=== PATIENT | female | born 1985 | race Caucasian/White ===

== ENCOUNTER 2024-05-02 09:10 | Emergency (ER) | payer OTHER, SELFPAY ==
[2024-05-02 09:17] VITALS: BP 149/93
--- NOTE | 2024-05-02 09:33 | ED.GENMED ---
History of Present Illness
General
Chief Complaint: Fainting/Passed Out
Source: patient and spouse
Time Seen by Provider: 05/02/24 09:22
History of Present Illness
History of Present Illness:
This patient is a 38-year-old female who suffers from constipation. 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 She noticed that she drank less
than usual yesterday but otherwise felt her normal self. Her last bowel movement was 2 days ago without black stool or blood. She woke at approximately 3:30 AM with complaints of abdominal distention, diffuse discomfort, associate with nausea.
She then had multiple episodes of nonbloody vomiting. She feels very tired this morning because she has been up and had very little sleep. She had an episode in the bathroom where she transiently became faints, no injury, no associated chest pain,
back pain, neck pain, dyspnea, or other complaints. Pain is constant, diffuse, without radiation, exacerbating, relieving factors.
Past History
Past History
ED Past Medical History: GERD, HTN, Psychiatric and Other (PTSD, migraines, genital herpes, anxiety/depression)
ED Past Surgical History: and Other ([place] tooth extraction, AB �2)
Social History
Tobacco: Former smoker
Alcohol: None
Drug: Former user
Personal:
Living: with family
Phy Exam
Physical Exam
Physical Exam:
GENERAL: Awake but tired appearing, in no apparent distress
EYE: pupils equal and reactive
NECK: Supple, no significant adenopathy.
ENT: o/p clr, mm slightly dry
CARDIAC: Regular rate and rhythm .
LUNGS: Clear breath sounds bilaterally, no acute respiratory distress, no wheezes/rales/rhonchi
ABDOMEN: Soft, diffuse nonspecific tenderness, no r/g, no cvat
NEUROLOGICAL: Alert and oriented, no focal neuro deficits
SKIN: Warm and dry, skin intact.
MUSCULOSKELETAL: No edema, well perfused.
PSYCH: Normal and appropriate interaction.
Course
Orders/Labs/Results
Orders:
Orders
05/02/24 09:17
ECG [Electrocardiogram (*1)] Urgent
Reason for Study: Syncope
EKG- Treatment ONCE
05/02/24 09:32
CT Abd/Pel (IV only)-DH only Urgent
Comment:
Reason For Exam: abd distention and diffuse pain with n/v
Cardiac Monitoring- Treatment ONCE
0.9% Sodium Chloride 1000 ml [Nss] 1,000 ml IV BOLUS
Ketorolac [Toradol] 15 mg IV NOW STA
05/02/24 09:39
Complete Blood Count/No Diff Urgent
Comprehensive Metabolic Panel Urgent
HCG, Serum Qualitative Screen Urgent
Comment: add on
Lipase Urgent
05/02/24 10:22
Add On- LAB Urgent
Comments:: serum hcg qualitative
Tests Added?: serum hcg qualitative
05/02/24 11:59
Urinalysis Reflex To Culture Urgent
Date Specimen was Collected: 05/02/24
Time Specimen was Collected: 11:57
Abnormal Lab Results
05/02/24
09:39
MPV 12.1 H fL
(7.4-10.4)
Glucose 122 H mg/dl
(70-99)
ALT 46 H U/L
(0-35)
05/02/24 09:39
05/02/24 09:39
Vital Signs
Initial and Last Documented VS:
Initial Vital Signs
Temp Pulse Resp BP Pulse Ox
98.3 F 77 18 149/93 97
05/02/24 09:17 05/02/24 09:17 05/02/24 09:17 05/02/24 09:17 05/02/24 09:17
Last Documented Vital Signs
Temp Pulse Resp BP Pulse Ox
98.3 F 58 19 138/85 98
05/02/24 09:17 05/02/24 12:03 05/02/24 12:03 05/02/24 12:03 05/02/24 12:03
*Critical Care Note
Total Time (30-74mins, 75-104mins- exclusive of procedures): Not Applicable
Update Note
Update Note:
Patient presents to the Emergency Department with __abdominal pain nausea vomiting
Number and Complexity of Problems Addressed at the Encounter
� Chronic conditions affecting care:
� Acute Exacerbation and/or Progression of Chronic Illness:
� Differential Diagnosis includes: But not limited to bowel obstruction, ileus, perforation, diverticulitis, etc. etc.
Amount and/or Complexity of Data to be Reviewed and Analyzed
� I performed an independent evaluation of and my interpretation is:
EKG:read bt me, nsr, nl rate, sl T wave flattening (nonspec)
CT:No acute abnormality in the abdomen or pelvis.
Hepatic steatosis and hepatomegaly.
Mild splenomegaly.
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
Colonic diverticulosis without acute diverticulitis.
Xrays:
Laboratory Studies:generally unremarkable
Other:
� Review of other/old records reveals: endoscopy December 2022 wnl
� Clinical information was obtained by an independent historian: who is bedside
� Prescriptions/Medications Considered but not given:
� Further testing considered but not performed:
Risk of Complications and/or Morbidity or Mortality of Patient Management
� Social determinants of health affecting care:
� Discussion with other providers (PCP, Hospitalists, Consultants, etc):
� Escalation of care including admission/observation vs risk of discharge considered:1214pm reassessment, pt feels much better, walked to br to urinate, no diarrhea, no dizziness/cp/sob. has intermittent lower abd cramping. Do
not suspect acute surgical/emergent cause of sxs, reassuring repeat exam (abd soft), labs, etc. Pt already aware of CT results/fatty liver an dis being worked up. I will give her copy of CT reprot.
ED Attending Note
-
Portions of this chart may have been created with voice recognition software.� Occasional wrong word or��sound alike� substitutions may have occurred due to the inherent limitations of voice recognition software.
Discharge Plan
Departure
Patient Disposition: Home (Routine Discharge)
Date of Disposition: 05/02/24
Time of Disposition: 12:15
Patient with high blood pressure during this ER visit?: Yes
Condition: Good
Discharge Problem:
Vomiting, Abdominal pain, Dizziness
Instructions: Dizziness, Adult ED, Abdominal Pain, BLOOD PRESSURE, Acute Nausea and Vomiting
Prescriptions:
No Action
valacyclovir 500 mg Tablet
500 mg PO DAILY
omeprazole 40 mg Capsule,Delayed Release(Dr/Ec)
40 mg PO DAILY
fluticasone propionate [Flovent] 44 mcg/actuation Hfa Aerosol Inhaler
2 puff INHALATION BID
albuterol sulfate 90 mcg/actuation Hfa Aerosol Inhaler
2 puff INHALATION 6XD PRN (Reason: sob)
Patient Comments:
pt has not needed in over a month ago
escitalopram oxalate 20 mg Tablet
20 mg PO DAILY
aripiprazole 5 mg Tablet
5 mg PO DAILY
metoprolol succinate 50 mg Capsule,Sprinkle,Er 24hr
50 mg PO DAILY
amoxicillin-pot clavulanate 875-125 mg tablet
1 tab PO BID Qty: 20 0RF
Referrals:
Rosana Gambino MD [Family Provider] - Follow up in 2-3 days
Activity Restrictions/Additional Instructions:
IF YOU DEVELOP CHEST PAIN, TROUBLE BREATHING, PALPITATIONS, DIZZINESS, RECURRENT/NEW/WORSENING ABDOMINAL PAIN, FEVER, OR OTHER WORRISOME SIGNS, GO TO THE ER IMMEDIATELY! SEE ATTACHED CT REPORT FOR FOLLOW UP.
Interventions
Interventions:
*Risk Screen - Suicide Last Done: 05/02/24 09:44
*General Assessment Last Done: 05/02/24 09:44
*Neglect/Abuse Screening Last Done: 05/02/24 09:44
ED- Fall Risk Assessment Last Done: 05/02/24 09:33
*ED COVID-19 Vaccine History Last Done: 05/02/24 09:44
ED- Cardiac Assessment Last Done: 05/02/24 09:33
ED- Neurological Assessment Last Done: 05/02/24 09:33
Discharge Date and Time
Print Language: EGYPTIAN
[2024-05-02 09:37] VITALS: BP 132/83
[2024-05-02] MEDS: NSS 1000 IV (09:38)
[2024-05-02] MEDS: TORADOL 15 MG IV (09:41)
[2024-05-02 09:56] LABS: Hemoglobin 13.2 g/dL (12.0-16.0); Mean Corpuscular Hgb 27.7 pg (27.0-31.0); Mean Platelet Volume 12.1 fL (7.4-10.4); Platelet Count 156 10^3/uL (130-400); Red Blood Cell Count 4.76 10^6/uL (4.20-5.40); Red Cell Dist. Width 13.3 % (11.5-14.5); White Blood Cell Count 7.1 10^3/uL (4.8-10.8)
[2024-05-02 10:00] VITALS: BP 127/78
[2024-05-02 10:00] LABS: ALT (SGPT) 46 U/L (0-35); AST (SGOT) 29 U/L (14-36); Albumin 4.3 g/dl (3.5-5.0); Alkaline Phosphatase 69 U/L (38-126); Blood Urea Nitrogen 10 mg/dl (7-17); Calcium 9.2 mg/dl (8.4-10.2); Carbon Dioxide 29 mmol/L (22-30); Chloride 104 mmol/L (98-107); Estimated Creatinine Clearance > 125 ml/min; Glucose 122 mg/dl (70-99); Lipase 97 U/L (23-300); Potassium 4.8 mmol/L (3.5-5.1); Sodium 139 mmol/L (135-145); Total Bilirubin 0.7 mg/dl (0.2-1.3); Total Protein 6.9 g/dl (6.3-8.2); eGFR > 60.00
[2024-05-02 10:55] LABS: HCG, Serum Qualitative Screen Negative
[2024-05-02 11:10] VITALS: BP 123/64
[2024-05-02 12:03] VITALS: BP 138/85
[2024-05-02 12:28] LABS: Urine Albumin Negative (Neg - Trace); Urine Bilirubin Negative (Negative); Urine Character Clear (Clear); Urine Color Yellow; Urine Glucose Negative (Negative); Urine Ketone Negative (Negative); Urine Leukocyte Trace (Negative); Urine Nitrite Negative (Negative); Urine Occult Blood Negative (Negative); Urine Specific Gravity 1.005 (<1.030); Urine Urobilinogen Negative (Neg - 1+)
[2024-05-02 13:10] LABS: Urine Bacteria Few (Negative); Urine Red Blood Cell 0-2 /HPF (0-2); Urine White Cell 0-2 /HPF (0-5)
== END 2024-05-02 12:44 | disposition home or self-care (01) ==
LOC: EMR 09:10
PROVIDERS: EMERGENCY PHYSICIAN Emergency Medicine; FAMILY PHYSICIAN Family Medicine
DX: R55 Syncope and collapse (principal); R42 Dizziness and giddiness; R10.9 Unspecified abdominal pain; R11.2 Nausea with vomiting, unspecified; R14.0 Abdominal distension (gaseous); K59.00 Constipation, unspecified; K76.0 Fatty (change of) liver, not elsewhere classified; R16.2 Hepatomegaly with splenomegaly, not elsewhere classified; K21.9 Gastro-esophageal reflux disease without esophagitis; I10 Essential (primary) hypertension; K57.30 Diverticulosis of large intestine without perforation or abscess without bleeding; F43.10 Post-traumatic stress disorder, unspecified; G43.909 Migraine, unspecified, not intractable, without status migrainosus; Z87.891 Personal history of nicotine dependence; Z91.030 Bee allergy status; Z88.5 Allergy status to narcotic agent; Z88.8 Allergy status to other drugs, medicaments and biological substances; Z91.018 Allergy to other foods; Z91.048 Other nonmedicinal substance allergy status
CPT/HCPCS: 99285; 96361; 96374; 74177; 80053; 81003; 81015; 83690; 84703; 85027; 93005; Q9967

== ENCOUNTER 2024-05-05 23:20 | Emergency (ER) | payer OTHER, SELFPAY ==
[2024-05-05 23:23] VITALS: BP 124/76
[2024-05-05 23:40] VITALS: BP 133/73
[2024-05-05 23:41] VITALS: BMI 37.9
[2024-05-05 23:48] LABS: Urine Albumin Trace (Neg - Trace); Urine Bilirubin Negative (Negative); Urine Character Slightly Cloudy (Clear); Urine Color Yellow; Urine Glucose Negative (Negative); Urine Ketone Negative (Negative); Urine Leukocyte 2+ (Negative); Urine Nitrite Negative (Negative); Urine Occult Blood 2+ (Negative); Urine Urobilinogen Negative (Neg - 1+)
[2024-05-05 23:49] LABS: HCG, Urine Qualitative Screen Negative
[2024-05-06] VITALS: BP 134/83
[2024-05-06 01:00] VITALS: BP 123/65
--- NOTE | 2024-05-06 01:01 | ED.GENMED ---
History of Present Illness
General
Chief Complaint: Urinary Symptoms
Source: patient
Exam Limitations: none
Time Seen by Provider: 05/06/24 00:23
Nursing documentation reviewed up to this point in time: agreed with
History of Present Illness
History of Present Illness:
38-year-old female with history as document presents to the emergency room for evaluation of urinary symptoms. Patient reports that she was having abdominal pain earlier in the week that she was seen in the emergency room had workup which was
essentially negative, thought her symptoms were related to constipation. Since then patient has developed increased urinary frequency and dysuria she is having continued lower abdominal discomfort; she believes she has a UTI so she came back to the
emergency room to be assessed. No fevers or chills. She does report occasional flank pains worse on the left. Denies any nausea or vomiting. Still some constipation. No vaginal bleeding or discharge. She says that her last menstrual period was
about 2 weeks ago. She denies any other complaints.
Past History
Past History
ED Past Medical History: GERD, HTN, Psychiatric and Other (PTSD, migraines, genital herpes, anxiety/depression)
ED Past Surgical History: and Other ([place] tooth extraction, AB �2)
Social History
Tobacco: Former smoker
Alcohol: None
Drug: Former user
Personal:
Living: with family
Review of Systems
Review of Systems
All Other Systems: ROS reviewed and negative except as documented in HPI and ROS
Constitutional: Denies fever
Respiratory: Denies trouble breathing
Cardiac: Denies chest pain
ABD/GI: Reports abdominal pain and constipated; Denies nausea or vomiting
: Reports dysuria, frequency and flank pain; Denies incontinence or bleeding
Musculoskeletal: Denies neck pain or back pain
Neurological: Denies headache
Phy Exam
Physical Exam
Physical Exam:
General: Awake, alert, oriented x3; no acute distress
Head: Normocephalic, atraumatic
Eyes: Conjunctiva normal, sclera anicteric
Throat: Airway intact, handling secretions
Neck: Trachea midline, supple without meningismus
Lungs: Clear to auscultation bilaterally, no wheezing, rales, rhonchi
Heart: Regular rate and rhythm, no murmurs, gallops, or rubs
Abd: Soft, non distended, tender to palpation in suprapubic region with no peritoneal signs or abdominal masses
Back: No CVA tenderness
Neuro: No gross deficits
Extremities: Warm and well-perfused
Scores
Heart Failure Risk
Heart Failure Risk Score: Not Applicable
Heart Score for Chest Pain Patients
STEMI patient?: Not applicable
Withdrawal Assessment of Alcohol
Withdrawal Assessment Completed?: Not applicable
Course
Orders/Labs/Results
Orders:
Orders
05/05/24 23:26
Test Result ONCE
05/05/24 23:37
HCG, Urine Qualitative Screen Urgent
Date Specimen was Collected: 05/05/24
Time Specimen was Collected: 23:26
Urinalysis Reflex To Culture Urgent
Date Specimen was Collected: 05/05/24
Time Specimen was Collected: 23:26
Urine Microscopic Reflex Cult Urgent
Urine Culture Urgent
ELIJAH Source: U
Specimen Description:
Date Specimen was Collected: 05/05/24
Time Specimen was Collected: 23:26
Abnormal Lab Results
05/05/24
23:37
Ur Occult Blood Reflex 2+ A
(Negative)
Leukocyte Esterase Rfl 2+ A
(Negative)
Urine WBC (Reflex) >100 A /HPF
(0-5)
Urine Bacteria (Reflex) Many A
(Negative)
Vital Signs
Initial and Last Documented VS:
Initial Vital Signs
Temp Pulse Resp BP Pulse Ox
37.1 C 80 18 124/76 98
05/05/24 23:23 05/05/24 23:23 05/05/24 23:23 05/05/24 23:23 05/05/24 23:23
Last Documented Vital Signs
Temp Pulse Resp BP Pulse Ox
37.1 C 80 18 134/83 93
05/05/24 23:23 05/05/24 23:23 05/05/24 23:23 05/06/24 00:00 05/06/24 00:15
MDM/Problems Addressed
Differential Diagnosis Includes:
UTI/pyelonephritis, interstitial cystitis, diabetes
MDM/Problems Addressed:
38-year-old female presents for evaluation of suprapubic pain associated with dysuria and increased urinary frequency consistent with prior UTIs. Vital signs normal. Exam as above. Will check urinalysis and hCG. Reassess after the above. Hold
on repeat abdominal imaging with normal CT few days ago and only mild suprapubic tenderness.
Urinalysis positive for infection with bacteria and pyuria. Vitals have been stable. She has no signs of sepsis and appears very well. She is stable for discharge home on oral antibiotics. Spoke to her about return precautions all questions
answered.
*Pulse Oximetry
Patient hypoxic: no
*Critical Care Note
Total Time (30-74mins, 75-104mins- exclusive of procedures): Not Applicable
Data Reviewed
Review of Other/Old Records Reveals: Labs, Records and Radiology Studies
Source: patient and records
Further Testing Considered But Not Given:
Considered need for repeat CT scan of the abdomen and pelvis as above
ED Attending Note
-
Portions of this chart may have been created with voice recognition software.� Occasional wrong word or��sound alike� substitutions may have occurred due to the inherent limitations of voice recognition software.
Discharge Plan
Departure
Patient Disposition: Home (Routine Discharge)
Date of Disposition: 05/06/24
Time of Disposition: 01:19
Patient with high blood pressure during this ER visit?: No
Discharge Problem:
UTI (urinary tract infection)
Instructions: Urinary Tract Infection, Adult (DC)
Prescriptions:
New
cefpodoxime 200 mg tablet
200 mg PO BID 10 Days Qty: 20 0RF
No Action
valacyclovir 500 mg Tablet
500 mg PO DAILY
omeprazole 40 mg Capsule,Delayed Release(Dr/Ec)
40 mg PO DAILY
fluticasone propionate [Flovent] 44 mcg/actuation Hfa Aerosol Inhaler
2 puff INHALATION BID
albuterol sulfate 90 mcg/actuation Hfa Aerosol Inhaler
2 puff INHALATION 6XD PRN (Reason: sob)
Patient Comments:
pt has not needed in over a month ago
escitalopram oxalate 20 mg Tablet
20 mg PO DAILY
aripiprazole 5 mg Tablet
5 mg PO DAILY
metoprolol succinate 50 mg Capsule,Sprinkle,Er 24hr
50 mg PO DAILY
amoxicillin-pot clavulanate 875-125 mg tablet
1 tab PO BID Qty: 20 0RF
Referrals:
Rosana Gambino MD [Family Provider] - Follow up in 2-3 days
Activity Restrictions/Additional Instructions:
Thank you for visiting the Emergency Department at [facility].
1. Please schedule a follow up appointment as directed. Call first thing tomorrow morning to make an appointment.
2. If indicated, please take your medications as instructed and indicated on discharge paperwork.
3. If any of your symptoms do not improve, or persist, or become more severe within 6-12 hours, please return to the emergency department for further care.
4. Please return to the emergency department if you develop a headache, neck pain/stiffness, fever greater than 100.4F, chest pain, shortness of breath, persistent nausea, vomiting, slurred speech, difficulty walking, numbness/tingling, weakness,
signs of infection or any other symptoms that are worrisome to you.
Please call [phone] if you have any questions.
Interventions
Interventions:
*Risk Screen - Suicide Last Done: 05/05/24 23:42
*General Assessment Last Done: 05/05/24 23:23
*Neglect/Abuse Screening Last Done: 05/05/24 23:42
ED- Fall Risk Assessment Last Done: 05/05/24 23:42
*ED COVID-19 Vaccine History Last Done: 05/05/24 23:42
ED-Female Genitourinary Assessment Last Done: 05/05/24 23:42
Discharge Date and Time
Print Language: LUX[place]
[2024-05-06 01:16] LABS: Urine Amorphous Seen; Urine Bacteria Many (Negative); Urine Squamous Cell >30 /LPF (Few); Urine Urothelial Cell >30 /LPF (FEW); Urine White Cell >100 /HPF (0-5)
[2024-05-06] MEDS: ROCEPHIN 1000 MG IV (01:29)
== END 2024-05-06 01:44 | disposition home or self-care (01) ==
LOC: EMR 23:20
PROVIDERS: EMERGENCY PHYSICIAN Emergency Medicine; FAMILY PHYSICIAN Family Medicine
DX: N39.0 Urinary tract infection, site not specified (principal); R10.30 Lower abdominal pain, unspecified; K59.00 Constipation, unspecified; I10 Essential (primary) hypertension; K21.9 Gastro-esophageal reflux disease without esophagitis; F43.10 Post-traumatic stress disorder, unspecified; G43.909 Migraine, unspecified, not intractable, without status migrainosus; F32.A Depression, unspecified; F41.9 Anxiety disorder, unspecified; Z87.891 Personal history of nicotine dependence; Z91.030 Bee allergy status; Z88.5 Allergy status to narcotic agent; Z88.8 Allergy status to other drugs, medicaments and biological substances; Z91.018 Allergy to other foods; Z91.048 Other nonmedicinal substance allergy status
CPT/HCPCS: 99284; 96374; 81003; 81015; 81025; 87077; 87086; 87186

== ENCOUNTER 2024-10-07 09:56 | Emergency (ER) | payer BC, OTHER, SELFPAY ==
[2024-10-07 10:05] VITALS: BP 149/91
[2024-10-07 10:48] LABS: % Basophils 1.2 % (0-2); % Eosinophils 1.1 % (0-6); % Immature Granulocytes 0.2 % (0-0.5); % Lymphocytes 27.4 % (20.5-51.1); % Monocytes 5.4 % (1.7-9.3); % Neutrophils 64.7 % (42.2-75.2); Absolute Basophils 0.1 10^3/uL (0-0.2); Absolute Eosinophils 0.1 10^3/uL (0-0.7); Absolute Lymphocytes 1.8 10^3/uL (1.2-3.4); Absolute Monocytes 0.4 10^3/uL (0.1-0.6); Absolute Neutrophils 4.2 10^3/uL (1.4-6.5); Hematocrit 39.6 % (37.0-47.0); Hemoglobin 13.3 g/dL (12.0-16.0); Mean Corp Hgb Conc. 33.6 g/dL (33.0-37.0); Mean Corpuscular Hgb 28.5 pg (27.0-31.0); Mean Platelet Volume 11.1 fL (7.4-10.4); Nucleated Red Blood Cells % 0 %; Platelet Count 208 10^3/uL (130-400); Red Blood Cell Count 4.66 10^6/uL (4.20-5.40); Red Cell Dist. Width 13.8 % (11.5-14.5); White Blood Cell Count 6.4 10^3/uL (4.8-10.8)
[2024-10-07 10:57] LABS: HCG, Serum Qualitative Screen Negative
[2024-10-07 11:03] LABS: ALT (SGPT) 29 U/L (0-35); AST (SGOT) 23 U/L (14-36); Albumin 4.6 g/dl (3.5-5.0); Alkaline Phosphatase 65 U/L (38-126); Blood Urea Nitrogen 11 mg/dl (7-17); Calcium 9.1 mg/dl (8.4-10.2); Carbon Dioxide 26 mmol/L (22-30); Chloride 103 mmol/L (98-107); Glucose 107 mg/dl (70-99); Potassium 4.4 mmol/L (3.5-5.1); Sodium 139 mmol/L (135-145); Total Bilirubin 0.5 mg/dl (0.2-1.3); Total Protein 7.4 g/dl (6.3-8.2); eGFR > 60.00
[2024-10-07 11:33] LABS: Lipase 234 U/L (23-300)
[2024-10-07] MEDS: COMPAZINE 10 MG IV (13:00)
[2024-10-07] MEDS: NSS 1000 IV (13:01)
[2024-10-07] MEDS: BENADRYL 25 MG IV (13:01)
--- NOTE | 2024-10-07 15:03 | ED.GENMED ---
History of Present Illness
General
Chief Complaint: Abdominal Symptoms
Source: patient
Exam Limitations: none
Time Seen by Provider: 10/07/24 12:31
History of Present Illness
History of Present Illness:
38-year-old female presents with nausea vomiting and diarrhea since 2 days ago with headache and nasal congestion. The nasal congestion has been getting worse over several weeks. She has been tested for COVID and the flu. She has not been able to
keep anything in and feels dehydrated. She notes the pain in her head is along the left side of her head and involving her left ear.
Past History
Past History
ED Past Medical History: GERD, HTN, Psychiatric and Other (PTSD, migraines, genital herpes, anxiety/depression)
ED Past Surgical History: and Other ([place] tooth extraction, AB �2)
Social History
Tobacco: Former smoker
Alcohol: None
Drug: Former user
Personal:
Living: with family
Phy Exam
Physical Exam
Physical Exam:
General: Well-appearing female no acute respiratory distress
HEENT: Normocephalic atraumatic neck is supple TMs normal pupils equal round reactive to light mucosa moist
Heart: Regular rate and rhythm no murmurs
Lungs: Clear no wheeze
Abdomen is soft nontender nondistended no guarding rebound normal bowel sounds
Extremities: No cyanosis or edema
Neurologic exam: Alert and oriented no facial asymmetry no nuchal rigidity or meningeal signs
Course
Orders/Labs/Results
Orders:
Orders
10/07/24 10:10
Test Result ONCE
10/07/24 10:28
Complete Blood Count/With Diff Urgent
Comprehensive Metabolic Panel Urgent
HCG, Serum Qualitative Screen Urgent
Lipase Urgent
10/07/24 12:43
0.9% Sodium Chloride 1000 ml [Nss] 1,000 ml IV BOLUS
Diphenhydramine [Benadryl] 25 mg IV NOW STA
Prochlorperazine [Compazine] 10 mg IV NOW STA
10/07/24 12:44
CT Head W/o Iv Contrast Urgent
Comment:
Reason For Exam: headache
Abnormal Lab Results
10/07/24
10:28
MPV 11.1 H fL
(7.4-10.4)
Glucose 107 H mg/dl
(70-99)
10/07/24 10:28
10/07/24 10:28
Vital Signs
Initial and Last Documented VS:
Initial Vital Signs
Temp Pulse Resp BP Pulse Ox
98.4 F 90 16 149/91 98
10/07/24 10:05 10/07/24 10:05 10/07/24 10:05 10/07/24 10:05 10/07/24 10:05
Last Documented Vital Signs
Temp Pulse Resp BP Pulse Ox
98.4 F 90 16 149/91 98
10/07/24 10:05 10/07/24 10:05 10/07/24 10:05 10/07/24 10:05 10/07/24 10:05
MDM/Problems Addressed
Differential Diagnosis Includes:
Nausea vomiting diarrhea with ongoing facial discomfort and nasal congestion as well as left-sided headache. Question viral illness versus migraine. CT of the head pending to evaluate for intracranial derangement. CT head was reviewed and is
negative for for other than diffuse sinus disease. Labs reviewed normal white count electrolytes within normal limits. Patient feeling much better after IV fluids Compazine and Benadryl. I suspect headache potentially caused from illness. She
does have significant sinus disease with ongoing nasal congestion. Will cover with Augmentin for this. Stable for discharge
*Critical Care Note
Total Time (30-74mins, 75-104mins- exclusive of procedures): Not Applicable
ED Attending Note
-
Portions of this chart may have been created with voice recognition software.� Occasional wrong word or��sound alike� substitutions may have occurred due to the inherent limitations of voice recognition software.
Discharge Plan
Departure
Patient Disposition: Home (Routine Discharge)
Date of Disposition: 10/07/24
Time of Disposition: 15:06
Patient with high blood pressure during this ER visit?: No
Discharge Problem:
Acute sinusitis
Instructions: Nausea and Vomiting, Adult (DC)
Prescriptions:
New
amoxicillin-pot clavulanate 875-125 mg tablet
1 tab PO BID Qty: 14 0RF
ondansetron 4 mg tablet,disintegrating
4 mg PO Q8H PRN (Reason: nausea and vomiting) Qty: 10 0RF
No Action
valacyclovir 500 mg Tablet
500 mg PO DAILY
omeprazole 40 mg Capsule,Delayed Release(Dr/Ec)
40 mg PO DAILY
fluticasone propionate [Flovent] 44 mcg/actuation Hfa Aerosol Inhaler
2 puff INHALATION BID
albuterol sulfate 90 mcg/actuation Hfa Aerosol Inhaler
2 puff INHALATION 6XD PRN (Reason: sob)
Patient Comments:
pt has not needed in over a month ago
escitalopram oxalate 20 mg Tablet
20 mg PO DAILY
aripiprazole 5 mg Tablet
5 mg PO DAILY
metoprolol succinate 50 mg Capsule,Sprinkle,Er 24hr
50 mg PO DAILY
amoxicillin-pot clavulanate 875-125 mg tablet
1 tab PO BID Qty: 20 0RF
cefpodoxime 200 mg tablet
200 mg PO BID 10 Days Qty: 20 0RF
Referrals:
Rosana Gambino MD [Family Provider] -
Activity Restrictions/Additional Instructions:
Rest. Drink plenty fluids. Use Zofran if needed for nausea. Use antibiotics as directed. Return if worse otherwise follow-up with your doctor.
Interventions
Interventions:
*Risk Screen - Suicide Last Done: 10/07/24 12:35
*General Assessment Last Done: 10/07/24 12:35
*Neglect/Abuse Screening Last Done: 10/07/24 12:35
*ED COVID-19 Vaccine History Last Done: 10/07/24 12:35
BQ-Pjqevd-Rvpluiypjr Assessment Last Done: 10/07/24 12:35
ED- Neurological Assessment Last Done: 10/07/24 12:35
Discharge Date and Time
Print Language: KOREAN
[2024-10-07 15:47] VITALS: BP 139/81
== END 2024-10-07 15:51 | disposition home or self-care (01) ==
LOC: EMR 09:56
PROVIDERS: Emergency Medicine; EMERGENCY PHYSICIAN Emergency Medicine; FAMILY PHYSICIAN Family Medicine
DX: J01.90 Acute sinusitis, unspecified (principal); Z87.891 Personal history of nicotine dependence
CPT/HCPCS: 99284; 96374; 96375; 96361; 70450; 80053; 83690; 84703; 85025

== ENCOUNTER 2025-01-13 01:07 | Emergency (ER) | payer BC, SELFPAY ==
[2025-01-13 01:10] VITALS: BP 174/102
[2025-01-13 01:31] VITALS: BP 135/67
[2025-01-13 01:42] VITALS: BMI 44.9
[2025-01-13 01:52] LABS: % Basophils 0.6 % (0-2); % Eosinophils 0.1 % (0-6); % Immature Granulocytes 0.4 % (0-0.5); % Lymphocytes 16.1 % (20.5-51.1); % Monocytes 4.1 % (1.7-9.3); % Neutrophils 78.7 % (42.2-75.2); Absolute Basophils 0.1 10^3/uL (0-0.2); Absolute Lymphocytes 1.6 10^3/uL (1.2-3.4); Absolute Monocytes 0.4 10^3/uL (0.1-0.6); Absolute Neutrophils 7.9 10^3/uL (1.4-6.5); Hematocrit 37.5 % (37.0-47.0); Hemoglobin 13.1 g/dL (12.0-16.0); Mean Corp Hgb Conc. 34.9 g/dL (33.0-37.0); Mean Corpuscular Hgb 29.6 pg (27.0-31.0); Mean Corpuscular Volume 84.8 fL (81.0-99.0); Mean Platelet Volume 11.7 fL (7.4-10.4); Nucleated Red Blood Cells % 0 %; Platelet Count 186 10^3/uL (130-400); Red Blood Cell Count 4.42 10^6/uL (4.20-5.40); Red Cell Dist. Width 13.2 % (11.5-14.5)
[2025-01-13 02:00] VITALS: BP 151/94
[2025-01-13 02:10] LABS: ALT (SGPT) 28 U/L (0-35); AST (SGOT) 19 U/L (14-36); Albumin 4.7 g/dl (3.5-5.0); Alkaline Phosphatase 67 U/L (38-126); Blood Urea Nitrogen 13 mg/dl (7-17); Calcium 9.5 mg/dl (8.4-10.2); Carbon Dioxide 26 mmol/L (22-30); Chloride 104 mmol/L (98-107); Estimated Creatinine Clearance > 125 ml/min; Glucose 152 mg/dl (70-99); Potassium 4.3 mmol/L (3.5-5.1); Sodium 140 mmol/L (135-145); Total Bilirubin 0.4 mg/dl (0.2-1.3); Total Protein 7.1 g/dl (6.3-8.2); eGFR > 60.00
[2025-01-13 02:22] LABS: HCG, Serum Qualitative Screen Negative
[2025-01-13 02:33] LABS: Lipase 108 U/L (23-300)
[2025-01-13] MEDS: VISTARIL 50 MG IM (02:34)
[2025-01-13] MEDS: NSS 500 IV (02:34)
[2025-01-13] MEDS: PEPCID 20 MG IV (02:34)
--- NOTE | 2025-01-13 02:59 | ED.GENMED ---
History of Present Illness
General
Chief Complaint: Abdominal Symptoms
Source: patient
Exam Limitations: none
Time Seen by Provider: 01/13/25 01:36
Nursing documentation reviewed up to this point in time: agreed with
History of Present Illness
History of Present Illness:
pt is a 39 y/o F
h/o bipolar/anxiety/depression/ptsd
migraines
HTN
here with itching to her back and abdomen that started 2 days ago
pt was given a new medication, abrelvy as an injection for migraines 8 days ago
she says she felt ok until 2 days ago when the itchiness started in her back and abdomen
she feels a burning sensation as well on her skin
she has been trying benadryl, 1 tab 4 times a day as needed but it is not helping
she saw her PCP yesterday whos tarted her on prednisone, she took 50 mg after the visit this morning
but she says nothing helps with the itching except standing in front of a fan naked, so then she feels cold and shakey
she also has a headache becuase she hasn't been sleeping
nausea/dry heaving but no vomiting
says she thinks she had a UTI last week but took something over the counter and it resolved
she denies cp, sob, throat swelling, throat itching, diarrhea
she has an epi pen for bee stings but didn't think that she needed it
but she is very anxious
pt says she doesn't have any mental health diagnoses other than anxiety and depression but is on abilify
Past History
Past History
ED Past Medical History: GERD, HTN, Psychiatric and Other (PTSD, migraines, genital herpes, anxiety/depression)
ED Past Surgical History: and Other (Nicasio tooth extraction, AB �2)
Social History
Tobacco: Former smoker
Alcohol: None
Drug: Former user
Personal:
Living: with family
Review of Systems
Review of Systems
Allergies reviewed?: Yes
All Other Systems: Not applicable
Phy Exam
Physical Exam
Physical Exam:
GENERAL: Alert , hyperventilating, twisting around in bed;
EYE: pupils equal and reactive
NECK: Supple
ENT: o/p clr, mmm.
CARDIAC: Regular rate and rhythm .
LUNGS: Clear breath sounds bilaterally, no acute respiratory distress, no wheezes/rales/rhonchi
ABDOMEN: Soft, without focal tenderness, no r/g, no cvat, normal bowel sounds
NEUROLOGICAL: Alert and oriented, no focal neuro deficits
SKIN: Warm and dry,
sh ehas excorations to her abdomen but no real rash
her back has 2 papules or urticaria; otherwise there is no rash
the excoriations cross midline
there is no vesicles
abvoe umbilicus there is a slight bruise
PSYCH: Normal and appropriate interaction.
Course
Orders/Labs/Results
Orders:
Orders
01/13/25
Electrocardiogram (*1) Stat
Reason for Study: Chest Pain
Comment: DONE
01/13/25 01:39
Test Result ONCE
01/13/25 01:40
Complete Blood Count/With Diff Urgent
Comprehensive Metabolic Panel Urgent
HCG, Serum Qualitative Screen Urgent
Lipase Urgent
01/13/25 02:16
HydrOXYzine [Vistaril] 50 mg IM NOW STA
01/13/25 02:23
Electrocardiogram (*1) Urgent
Reason for Study: QTc Monitoring
EKG- Treatment ONCE
0.9% Sodium Chloride 500 ml [Nss] 500 ml IV BOLUS
Famotidine [Pepcid] 20 mg IV NOW STA
01/13/25 03:57
Urinalysis Reflex To Culture Urgent
Date Specimen was Collected: 01/13/25
Time Specimen was Collected: 03:54
01/13/25 04:36
CT Abd/pel Without Iv Or Oral Urgent
Comment:
Reason For Exam: flank pain, vomiting
Abnormal Lab Results
01/13/25
01:40
MPV 11.7 H fL
(7.4-10.4)
Absolute Neuts (auto) 7.9 H 10^3/uL
(1.4-6.5)
Neutrophils % 78.7 H %
(42.2-75.2)
Lymphocytes % 16.1 L %
(20.5-51.1)
Creatinine 0.5 L mg/dL
(0.6-1.0)
Glucose 152 H mg/dl
(70-99)
01/13/25 01:40
01/13/25 01:40
Vital Signs
Initial and Last Documented VS:
Initial Vital Signs
Temp Pulse Resp BP Pulse Ox
36.8 C 68 28 174/102 100
01/13/25 01:10 01/13/25 01:10 01/13/25 01:10 01/13/25 01:10 01/13/25 01:10
Last Documented Vital Signs
Temp Pulse Resp BP Pulse Ox
36.8 C 61 14 124/64 98
01/13/25 01:10 01/13/25 04:30 01/13/25 04:15 01/13/25 04:00 01/13/25 04:30
ED Attending Note
-
Portions of this chart may have been created with voice recognition software.� Occasional wrong word or��sound alike� substitutions may have occurred due to the inherent limitations of voice recognition software.
Discharge Plan
Departure
Patient Disposition: Home (Routine Discharge)
Date of Disposition: 01/13/25
Time of Disposition: 05:28
Discharge Problem:
Itching, Allergic reaction, Anxiety
Instructions: Adverse Drug Reactions, Adult ED, Anxiety in adults - ED discharge instructions
Prescriptions:
New
hydroxyzine HCl 25 mg tablet
25 mg PO TID PRN (Reason: itching) Qty: 10 0RF
No Action
valacyclovir 500 mg Tablet
500 mg PO DAILY
omeprazole 40 mg Capsule,Delayed Release(Dr/Ec)
40 mg PO DAILY
fluticasone propionate [Flovent] 44 mcg/actuation Hfa Aerosol Inhaler
2 puff INHALATION BID
albuterol sulfate 90 mcg/actuation Hfa Aerosol Inhaler
2 puff INHALATION 6XD PRN (Reason: sob)
Patient Comments:
pt has not needed in over a month ago
escitalopram oxalate 20 mg Tablet
20 mg PO DAILY
aripiprazole 5 mg Tablet
5 mg PO DAILY
metoprolol succinate 50 mg Capsule,Sprinkle,Er 24hr
50 mg PO DAILY
amoxicillin-pot clavulanate 875-125 mg tablet
1 tab PO BID Qty: 20 0RF
cefpodoxime 200 mg tablet
200 mg PO BID 10 Days Qty: 20 0RF
amoxicillin-pot clavulanate 875-125 mg tablet
1 tab PO BID Qty: 14 0RF
ondansetron 4 mg tablet,disintegrating
4 mg PO Q8H PRN (Reason: nausea and vomiting) Qty: 10 0RF
Referrals:
Rosana Gambino MD [Family Provider] -
Stand Alone Forms: Return to Work
Activity Restrictions/Additional Instructions:
TEHSE SYMPTOMS MAY BE SIDE EFFECT FROM THE INJECTION YOU HAD
I DOUBT IT IS SHINGLES BUT IF YOU HAVE WORSE OUTBREAK OF BLISTERS YOU SHOULD SEE YOUR DOCTOR
CONTINUE THE STEROIDS PRESCRIBED
INSTEAD OF BENADRYL
TRY HYDROXYZINE 25 MG 2 OR 3 TIMES A DAY NEEDED FOR ITCHING
NO DRIVING OR ALCOHOL ON THIS MEDICATION
IT MAY BE SEDATING
RETURN FOR ANY CONCERNS
YOUR BLOOD WORK WAS REASSURING
YOUR URINE WAS NEGATIVE
Interventions
Interventions:
*Risk Screen - Suicide Last Done: 01/13/25 01:10
*General Assessment Last Done: 01/13/25 01:43
*Neglect/Abuse Screening Last Done: 01/13/25 01:43
*ED- Fall Risk Assessment Last Done: 01/13/25 01:43
*ED COVID-19 Vaccine History Last Done: 01/13/25 01:43
*Nursing Disposition Last Done: 01/13/25 07:00
UM-Nmvgdx-Yfgknlbuze Assessment Last Done: 01/13/25 01:44
Discharge Date and Time
Discharge Date/Time: 01/13/25 07:01
Print Language: SETSWANA
[2025-01-13 03:00] VITALS: BP 132/68
[2025-01-13 04:00] VITALS: BP 124/64
[2025-01-13 04:02] LABS: Urine Albumin Negative (Neg - Trace); Urine Bilirubin Negative (Negative); Urine Character Clear (Clear); Urine Color Yellow; Urine Glucose Negative (Negative); Urine Ketone Negative (Negative); Urine Leukocyte Negative (Negative); Urine Nitrite Negative (Negative); Urine Occult Blood Negative (Negative); Urine Urobilinogen Negative (Neg - 1+)
== END 2025-01-13 07:01 | disposition home or self-care (01) ==
LOC: EMR 01:07
PROVIDERS: Physician Assistant; EMERGENCY PHYSICIAN Student in an Organized Health Care Education/Training Program; FAMILY PHYSICIAN Family Medicine
DX: L29.9 Pruritus, unspecified (principal); F41.9 Anxiety disorder, unspecified; T78.40XA Allergy, unspecified, initial encounter; Y92.9 Unspecified place or not applicable; F31.9 Bipolar disorder, unspecified; F43.10 Post-traumatic stress disorder, unspecified; I10 Essential (primary) hypertension; Z87.440 Personal history of urinary (tract) infections; Z87.891 Personal history of nicotine dependence
CPT/HCPCS: 99284; 96374; 96372; 96361; 74176; 80053; 81003; 83690; 84703; 85025; 93005